=== PATIENT | female | born 1970 | race African-American/Black ===

== ENCOUNTER 2019-11-08 18:06 | Inpatient (IN) | payer OTHER ==
[2019-11-08 21:37] VITALS: BMI 33.5
--- NOTE | 2019-11-09 00:28 | HP ---
CIWA Score Nausea/Vomitin-No Nausea/No Vomiting Muscle Tremors: None Anxiety: 2 Agitation: 2 Paroxysmal Sweats: 3 Orientation: 0-Oriented Tacttile Disturbances: 2-Mild Itch/Numbness/Burn Auditory Disturbances: 0-None Visual Disturbances: 3-Moderate Sensitivity (lights) Headache: 0-None Present CIWA-Ar Total Score: 12 - Admission Criteria OASAS Guidelines: Admission for Medically Managed Detox: Requires at least one of the followin. CIWA greater than 12 2. Seizures within the past 24 hours 3. Delirium tremens within the past 24 hours 4. Hallucinations within the past 24 hours 5. Acute intervention needed for co occurring medical disorder 6. Acute intervention needed for co occurring psychiatric disorder 7. Severe withdrawal that cannot be handled at a lower level of care (continued vomiting, continued diarrhea, abnormal vital signs) requiring intravenous medication and/or fluids 8. Admitting History and Physical - Past Medical History ...LMP: 03/19/04 - Smoking History Smoking history: Current some day smoker Have you smoked in the past 12 months: Yes Aproximately how many cigarettes per day: 20 - Alcohol/Substance Use Hx Alcohol Use: Yes Admission ROS [facility] Chief Complaint: seeking alcohol detox Allergies/Adverse Reactions: Allergies Allergy/AdvReac Type Severity Reaction Status Date / Time Sulfa (Sulfonamide Allergy Severe Swelling Verified 11/08/19 21:19 Antibiotics) History of Present Illness: HERE FOR ALCOHOL DETOX. SELF REFERRED. LAST HERE 2014. PRESENTS TODAY WITH C/O WORSENING WITHDRAWAL SX'S. REPORTS DAILY ALCOHOL ABUSE. LAST USE 1 DAY AGO. LAST DETOX WAS AT [facility] IN Aug. SHE REPORTS RELAPSING 1 MONTH AFTER DC. 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 DENIES SZ, BLACKOUTS, AVH, DRUG OVERDOSE. UTOX + ARMANDO. DENIES IVDU. DENIES ANY SIGNIFICANT PERIOD OF CLEAN TIME EXCEPT RECENT 1 MONTH IN AUG. HOMLESS, UNEMPLOYED, DENIES LEGALS Exam Limitations: No Limitations - Ebola screening Have you traveled outside of the country in the last 21 days: No Have you had contact with anyone from an Ebola affected area: No Have you been sick,other than usual withdrawal symptoms: No Do you have a fever: No - Review of Systems Constitutional: Chills, Loss of Appetite, Malaise, Night Sweats, Changes in sleep EENT: reports: No Symptoms Reported Respiratory: reports: Shortness of Breath (PRN 2/2 ASTHAM), Productive cough ( YELLOWISH X 2 DAYS) Cardiac: reports: No Symptoms Reported GI: reports: No Symptoms Reported : reports: No Symptoms Reported Musculoskeletal: reports: Joint Pain, Neck Pain Integumentary: reports: No Symptoms Reported Neuro: reports: No Symptoms reported Endocrine: reports: No Symptoms Reported Hematology: reports: No Symptoms Reported Psychiatric: reports: Orientated x3, Anxious, Depressed (DENIES SI) Other Systems: Reviewed and Negative Patient History - Patient Medical History Hx Anemia: No Hx Asthma: Yes (Pt is on MDI) Hx Chronic Obstructive Pulmonary Disease (COPD): No Hx Cancer: No Hx Cardiac Disorders: No Hx Congestive Heart Failure: No Hx Hypertension: No Hx Hypercholesterolemia: No Hx Pacemaker: No HX Cerebrovascular Accident: No Hx Seizures: Yes (LAST 20 YEARS R/T DRUGS) Hx Dementia: No Hx Diabetes: No Hx Gastrointestinal Disorders: Yes (GERD) Hx Liver Disease: No Hx Genitourinary Disorders: No Hx Sexually Transmitted Disorders: No Hx Renal Disease (ESRD): No Hx Thyroid Disease: Yes (NOT ON SYNTHROID) Hx Human Immunodeficiency Virus (HIV): No Hx Hepatitis C: No Hx Depression: No Hx Suicide Attempt: No Hx Bipolar Disorder: Yes (on depakote taking meds) Hx Schizophrenia: No - Patient Surgical History Past Surgical History: Yes Hx Neurologic Surgery: No Hx Cataract Extraction: No Hx Cardiac Surgery: No Hx Lung Surgery: No Hx Breast Surgery: No Hx Breast Biopsy: No Hx Abdominal Surgery: Yes (PARTIAL HYSTERECTOMY 10 YRS AGO) Hx Appendectomy: No Hx Cholecystectomy: No Hx Genitourinary Surgery: No Hx Section: Yes (x 2) Hx Orthopedic Surgery: No Hx Hysterectomy: Yes (IN 2003) Other Surgical History: Lipoma removed from back of neck. Anesthesia Reaction: No - PPD History Previous Implant?: Yes Documented Results: Positive w/o proof PPD to be Administered?: No - Reproductive History Patient is a Female of Child Bearing Age (11 -55 yrs old): Yes Last Menstrual Period: 03/19/04 Patient : No (NE[facility] [place]) - Smoking Cessation Smoking history: Current every day smoker Have you smoked in the past 12 months: Yes Aproximately how many cigarettes per day: 3 Cigars Per Day: 0 Hx Chewing Tobacco Use: No Initiated information on smoking cessation: Yes 'Breaking Loose' booklet given: 11/09/19 - Substance & Tx. History Hx Alcohol Use: Yes Hx Substance Use: Yes Substance Use Type: Alcohol, Cocaine Hx Substance Use Treatment: Yes ([facility]) - Substances abused Crack Substance route: Smoking Frequency: Daily Amount used: 100 dollars Age of first use: 16 Date of last use: 11/07/19 Heroin Substance route: Inhalation Frequency: 1-2 times per week Amount used: 1 bag Age of first use: 13 Date of last use: 11/06/19 Alcohol Substance route: Oral Frequency: Daily Amount used: 4 40 ounces of beer/ 1 pint of vodka. Age of first use: 14 Date of last use: 11/07/19 Alprazolam (Xanax) Substance route: Oral Frequency: Daily Amount used: 2 sticks Age of first use: 13 Date of last use: 11/07/19 Admission Physical Exam [facility] - Vital Signs Vital Signs: Vital Signs - 24 hr 11/08/19 21:18 Temperature 98.7 F Pulse Rate 97 H Respiratory 20 Rate Blood Pressure 151/89 - Physical General Appearance: Yes: Mild Distress, Sweating, Anxious HEENTM: Yes: EOMI, Normocephalic, Normal Voice, TORI, Pharynx Normal Respiratory: Yes: Chest Non-Tender, Lungs Clear, Normal Breath Sounds, Decreased Breath Sounds, No Respiratory Distress Neck: Yes: No masses,lesions,Nodules, Supple, Trachea in good position Breast: Yes: Breasts Symetrical Cardiology: Yes: Regular Rhythm, Regular Rate, S1, S2 Abdominal: Yes: Normal Bowel Sounds, Non Tender, Soft, Protuberent Genitourinary: Yes: Within Normal Limits Back: Yes: Normal Inspection Musculoskeletal: Yes: full range of Motion, Gait Steady Extremities: Yes: Normal Capillary Refill, Normal Range of Motion, Non-Tender, Tremors Neurological: Yes: Fully Oriented, Alert, Motor Strength 5/5 Integumentary: Yes: Dry, Cold (COOL) Lymphatic: Yes: Within Normal Limits - Diagnostic (1) Alcohol dependence with withdrawal, uncomplicated Current Visit: Yes Status: Acute (2) Cocaine dependence with withdrawal Current Visit: Yes Status: Acute (3) Opioid abuse, episodic Current Visit: Yes Status: Suspected (4) Nicotine dependence Current Visit: Yes Status: Chronic Qualifiers: Nicotine product type: cigarettes Substance use status: uncomplicated Qualified Code(s): F17.210 - Nicotine dependence, cigarettes, uncomplicated (5) Homeless Current Visit: Yes Status: Suspected (6) History of positive PPD Current Visit: Yes Status: Chronic (7) Bronchial asthma Current Visit: Yes Status: Acute Qualifiers: Asthma severity: mild Asthma persistence: intermittent Asthma complication type: uncomplicated Qualified Code(s): J45.20 - Mild intermittent asthma, uncomplicated Cleared for Admission [facility] - Detox or Rehab S Level of Care: Medically Managed Detox Regimen/Protocol: Not Applicable (ATIVAN) Claeared for Rehab Admission: No Breathalyzer - Breathalyzer Breathalyzer: 0.009 Urine Drug Screen - Test Device Lot number: [id number] Expiration date: 09/03/21 - Control Is test valid?: Yes - Results Drug screen NEGATIVE: No Urine drug screen results: ARMANDO-Cocaine Inpatient Rehab Admission - Rehab Decision to Admit Inpatient rehab admission?: No
[2019-11-09] MEDS ORDERED: ALBUTEROL SO4 HFA INHALER IH PRN ×2 (00:36→00:50)
[2019-11-09] MEDS ORDERED: ONDANSETRON *ODT* 4 MG TABLET SL PRN (00:37)
[2019-11-09] MEDS ORDERED: IBUPROFEN 400 MG TABLET (FP) PO PRN (00:37)
[2019-11-09] MEDS ORDERED: guaiFENesin 200 MG/10 ML 10 ML UNIT-DOSE CUPS PO PRN (00:37)
[2019-11-09] MEDS ORDERED: ACETAMINOPHEN 325 MG TABLET (FP) PO PRN (00:37)
[2019-11-09] MEDS ORDERED: DICYCLOMINE HCL 10 MG CAPSULE PO PRN (00:37)
[2019-11-09] MEDS ORDERED: MENTHOL/PHENOL 1 EACH UD MM PRN (00:37)
[2019-11-09] MEDS ORDERED: LORazepam 1 MG TABLET PO PRN (00:37)
[2019-11-09] MEDS ORDERED: MAGNESIUM HYDROX 2400MG/30ML ORAL SUSPENSION 30 ML CUP PO PRN (00:37)
[2019-11-09] MEDS ORDERED: MAGNESIUM CITRATE 300 ML BOTTLE PO PRN (00:37)
[2019-11-09] MEDS ORDERED: BISMUTH SUBSALICYLATE 524 MG/30 ML UD PO PRN (00:37)
[2019-11-09] MEDS ORDERED: MAG HYDROX/AL HYDROX/SIMETH 30 ML UNIT-DOSE CUP PO PRN (00:37)
[2019-11-09] MEDS ORDERED: NICOTINE POLACRILEX 2 MG GUM BUC PRN (00:37)
[2019-11-09] MEDS ORDERED: P-EPHED 60MG/TRIPROLIDI 2.5MG TABLET PO PRN (00:37)
[2019-11-09] MEDS ORDERED: hydrOXYzine PAMOATE 25 MG CAPSULE (FP) PO PRN (00:37)
[2019-11-09] MEDS ORDERED: METHOCARBAMOL 500 MG TABLET PO PRN (00:37)
[2019-11-09] MEDS ORDERED: ALBUTEROL SO4 0.083% IH SOL 2.5 MG/3 ML VIAL.NEB. NEB PRN (00:42)
[2019-11-09] MEDS: LORazepam 2 MG TABLET PO SCH ×4 (06:04→22:27)
--- NOTE | 2019-11-09 10:29 | CONSULT ---
[facility] Psychiatric Consult - Data Date of interview: 11/09/19 Admission source: Self-referred Identifying data: Ms Marti is a 49 years old -[place] female with 12 children, unemployed on public assistance, homeless seeking detox treatment for alcohol, heroin, cocaine and xanax Substance Abuse History: Reports history of alcohol, heroin, crack cocaine and xanax use. Refer to addiction counselor's summary for further information Medical History: Significant for history of bronchial asthma, hypothyroidism, seizure disorder, obesity, history of partial hysterectomy and removal of lipoma from back & neck. Smokes 3 cigarettes daily Psychiatric History: Patient was approached several times at bedside. On every occasion, she told promotion writer:'' I'm tired and cannot talk to you right. Why don't you precribe my depakote, I don't need to see you for that" Psychiatric Findings - Problem List ([place] 1, 2,3) (1) Bipolar disorder Current Visit: No Status: Acute
[2019-11-09] MEDS: NICOTINE 14 MG/24 HOURS TOPICAL PATCH TD SCH (10:30)
[2019-11-09] MEDS: PRENATAL VITAMINS W/ FOLIC ACID TABLET (FP) PO SCH (10:30)
[2019-11-09 11:35] LABS: HEMATOCRIT 36.8 % (32.4-45.2); HEMOGLOBIN 12.6 GM/dL (10.7-15.3); MCHC 34.2 g/dl (32.0-36.0); MEAN CELL VOLUME 87.6 fl (80-96); MEAN PLT VOLUME 8.8 fl (7.5-11.1); PLATELET COUNT 308 K/MM3 (134-434); RDW 13.3 % (11.6-15.6); WHITE BLOOD COUNT 7.4 K/mm3 (4.0-10.0)
[2019-11-09 11:44] LABS: ALBUMIN 3.3 g/dl (3.4-5.0); BILIRUBIN,TOTAL 0.3 mg/dL (0.2-1); BLOOD UREA NITROGEN 6.8 mg/dL (7-18); CALCIUM 8.6 mg/dL (8.5-10.1); TOT PROT 6.7 g/dl (6.4-8.2)
[2019-11-09] MEDS ORDERED: FLUCONAZOLE 50 MG TABLET PO ONE (12:01)
[2019-11-09] MEDS ORDERED: AZITHROMYCIN 250 MG TABLET PO ONE (12:04)
--- NOTE | 2019-11-09 12:23 | PN ---
[facility] CIWA - CIWA Score Nausea/Vomitin-No Nausea/No Vomiting Muscle Tremors: 3 Anxiety: 3 Agitation: 4-Moderately Restless Paroxysmal Sweats: 3 Orientation: 0-Oriented Tacttile Disturbances: 0-None Auditory Disturbances: 0-None Visual Disturbances: 0-None Headache: 0-None Present CIWA-Ar Total Score: 13 BHS Progress Note (SOAP) Subjective: shakes sweats chest congestions sore throat body aches eye infection vaginal discharge/yeast/foul odor I have a h/o of high blood pressure but have not had any medication in a while Objective: 11/09/19 12:26 Vital Signs Temperature 97.3 F L 11/09/19 10:13 Pulse Rate 114 H 11/09/19 10:13 Respiratory Rate 17 11/09/19 10:13 Blood Pressure 136/82 11/09/19 10:13 O2 Sat by Pulse Oximetry (%) Laboratory Tests 11/08/19 11/09/19 11/09/19 21:53 09:15 09:15 WBC 7.4 RBC 4.20 Hgb 12.6 Hct 36.8 MCV 87.6 MCH 30.0 MCHC 34.2 RDW 13.3 Plt Count 308 MPV 8.8 Sodium 141 Potassium 4.0 Chloride 107 Carbon Dioxide 27 Anion Gap 7 L BUN 6.8 L Creatinine 1.0 Est GFR (CKD-EPI)AfAm 75.54 Est GFR (CKD-EPI)NonAf 65.18 Random Glucose 125 H Calcium 8.6 Total Bilirubin 0.3 AST 13 L ALT 18 Alkaline Phosphatase 95 Total Protein 6.7 Albumin 3.3 L POC Urine HCG, Qual Negative aaox3 ambulating no acute distress Assessment: 11/09/19 12:27 withdrawals spoke with pt pharmacy who states that last time pt had any HTN medication( metoprolol 25mg bid, norvasc 5mg qdaily, ASA 81mg qdaily) filled and p/u was July [address] Garcia [phone]. Plan: continue detox cortisproin eye drops ordered monistat VS diflucan 150mg x one symbicort zpak x 4 days will order HTN while in our facility. pt was made aware the importance of seeing her PCP Dr. Garcia and remaining as her pt for continuity of care. pt in agreement.
[2019-11-09] MEDS ORDERED: POLYMYXIN B SULFATE/TMP 10 ML OPHTHALMIC SOLUTION OU SCH (14:00)
[2019-11-09] MEDS: amLODIPine BESYLATE 5 MG TABLET (FP) PO SCH (14:54)
[2019-11-09] MEDS: ASPIRIN 81 MG CHEWABLE TABLETS PO SCH (14:55)
[2019-11-09] MEDS: BUDESONIDE/FORMETEROL FUMARATE 80/4.5 mcg INHALER IH SCH ×2 (14:56→22:31)
[2019-11-09] MEDS: NEOMYCIN/POLYMYX/HC OPHTHALMIC SUSPENSION 7.5 ML BOTTLE OU SCH ×3 (15:53→22:31)
[2019-11-09] MEDS: ALBUTEROL SO4 HFA INHALER IH PRN (22:26)
[2019-11-09] MEDS: METOPROLOL TARTRATE 25 MG TABLET (FP) PO SCH (22:27)
[2019-11-09] MEDS: THIAMINE HCL 100 MG TABLET (FP) PO SCH (22:28)
[2019-11-09] MEDS: MELATONIN 5 MG TABLETS PO PRN (22:29)
[2019-11-09] MEDS: MICONAZOLE NITRATE 2% VAGINAL CREAM 45 GM TUBE VG SCH (22:31)
[2019-11-10] MEDS: LORazepam 1 MG TABLET PO SCH ×4 (06:06→22:09)
[2019-11-10] MEDS: NEOMYCIN/POLYMYX/HC OPHTHALMIC SUSPENSION 7.5 ML BOTTLE OU SCH ×5 (06:08→22:11)
--- NOTE | 2019-11-10 09:09 | PN ---
[facility] CIWA - CIWA Score Nausea/Vomitin-No Nausea/No Vomiting Muscle Tremors: 3 Anxiety: 2 Agitation: 3 Paroxysmal Sweats: 3 Orientation: 0-Oriented Tacttile Disturbances: 0-None Auditory Disturbances: 0-None Visual Disturbances: 0-None Headache: 0-None Present CIWA-Ar Total Score: 11 S Progress Note (SOAP) Subjective: feeling better sweats irritable agitation Objective: 11/10/19 09:08 Vital Signs Temperature 96.8 F L 11/10/19 06:45 Pulse Rate 94 H 11/10/19 06:45 Respiratory Rate 18 11/10/19 06:45 Blood Pressure 125/97 11/10/19 06:45 O2 Sat by Pulse Oximetry (%) Laboratory Tests 11/08/19 11/09/19 11/09/19 21:53 09:15 09:15 WBC 7.4 RBC 4.20 Hgb 12.6 Hct 36.8 MCV 87.6 MCH 30.0 MCHC 34.2 RDW 13.3 Plt Count 308 MPV 8.8 Sodium 141 Potassium 4.0 Chloride 107 Carbon Dioxide 27 Anion Gap 7 L BUN 6.8 L Creatinine 1.0 Est GFR (CKD-EPI)AfAm 75.54 Est GFR (CKD-EPI)NonAf 65.18 Random Glucose 125 H Calcium 8.6 Total Bilirubin 0.3 AST 13 L ALT 18 Alkaline Phosphatase 95 Total Protein 6.7 Albumin 3.3 L POC Urine HCG, Qual Negative RPR Titer 11/09/19 09:15 WBC RBC Hgb Hct MCV MCH MCHC RDW Plt Count MPV Sodium Potassium Chloride Carbon Dioxide Anion Gap BUN Creatinine Est GFR (CKD-EPI)AfAm Est GFR (CKD-EPI)NonAf Random Glucose Calcium Total Bilirubin AST ALT Alkaline Phosphatase Total Protein Albumin POC Urine HCG, Qual RPR Titer Nonreactive aaox3 ambulating no acute distress Assessment: 11/10/19 09:09 withdrawals Plan: continue detox increase fluids
[2019-11-10] MEDS: amLODIPine BESYLATE 5 MG TABLET (FP) PO SCH (10:10)
[2019-11-10] MEDS: AZITHROMYCIN 250 MG TABLET PO SCH (10:10)
[2019-11-10] MEDS: PANTOPRAZOLE 40 MG TABLET PO SCH (10:10)
[2019-11-10] MEDS: METOPROLOL TARTRATE 25 MG TABLET (FP) PO SCH ×2 (10:10→22:09)
[2019-11-10] MEDS: ASPIRIN 81 MG CHEWABLE TABLETS PO SCH (10:10)
[2019-11-10] MEDS: NICOTINE 14 MG/24 HOURS TOPICAL PATCH TD SCH (10:11)
[2019-11-10] MEDS: ACETAMINOPHEN 325 MG TABLET (FP) PO PRN ×2 (10:12→21:06)
[2019-11-10] MEDS: TOLNAFTATE 1% CREAM 15 GM TUBE TP SCH ×2 (10:15→22:11)
[2019-11-10] MEDS: BUDESONIDE/FORMETEROL FUMARATE 80/4.5 mcg INHALER IH SCH ×2 (10:16→22:11)
[2019-11-10] MEDS: PRENATAL VITAMINS W/ FOLIC ACID TABLET (FP) PO SCH (10:18)
[2019-11-10] MEDS: ALBUTEROL SO4 HFA INHALER IH PRN (19:10)
[2019-11-10] MEDS: THIAMINE HCL 100 MG TABLET (FP) PO SCH (22:09)
[2019-11-10] MEDS: MELATONIN 5 MG TABLETS PO PRN (22:10)
[2019-11-10] MEDS: MICONAZOLE NITRATE 2% VAGINAL CREAM 45 GM TUBE VG SCH (22:11)
[2019-11-11] MEDS ORDERED: LORazepam 0.5 MG TABLET PO PRN
[2019-11-11] MEDS: LORazepam 0.5 MG TABLET PO SCH ×4 (06:25→22:26)
[2019-11-11] MEDS: NEOMYCIN/POLYMYX/HC OPHTHALMIC SUSPENSION 7.5 ML BOTTLE OU SCH ×5 (06:26→22:29)
[2019-11-11] MEDS: BUDESONIDE/FORMETEROL FUMARATE 80/4.5 mcg INHALER IH SCH ×2 (10:57→22:28)
[2019-11-11] MEDS: amLODIPine BESYLATE 5 MG TABLET (FP) PO SCH (10:58)
[2019-11-11] MEDS: METOPROLOL TARTRATE 25 MG TABLET (FP) PO SCH ×2 (10:58→22:26)
[2019-11-11] MEDS: AZITHROMYCIN 250 MG TABLET PO SCH (10:58)
[2019-11-11] MEDS: ASPIRIN 81 MG CHEWABLE TABLETS PO SCH (10:59)
[2019-11-11] MEDS: PANTOPRAZOLE 40 MG TABLET PO SCH (10:59)
[2019-11-11] MEDS: NICOTINE 14 MG/24 HOURS TOPICAL PATCH TD SCH (10:59)
[2019-11-11] MEDS: PRENATAL VITAMINS W/ FOLIC ACID TABLET (FP) PO SCH (10:59)
[2019-11-11] MEDS: TOLNAFTATE 1% CREAM 15 GM TUBE TP SCH ×2 (11:00→22:28)
--- NOTE | 2019-11-11 13:28 | PN ---
S CIWA - CIWA Score Nausea/Vomitin-No Nausea/No Vomiting Muscle Tremors: 2 Anxiety: 1-Mildly Anxious Agitation: 1-Slight > Activity Paroxysmal Sweats: 1-Minimal Palms Moist Orientation: 0-Oriented Tacttile Disturbances: 0-None Auditory Disturbances: 0-None Visual Disturbances: 0-None Headache: 0-None Present CIWA-Ar Total Score: 5 BHS Progress Note (SOAP) Subjective: feeling much better little chills Objective: 11/11/19 13:27 Vital Signs Temperature 98.2 F 11/11/19 08:50 Pulse Rate 93 H 11/11/19 08:50 Respiratory Rate 19 11/11/19 08:50 Blood Pressure 142/80 11/11/19 08:50 O2 Sat by Pulse Oximetry (%) aaox3 ambulating no acute distress Assessment: 11/11/19 13:28 withdrawals Plan: continue detox d/c in am
[2019-11-11 14:44] LABS: PH,URINE 6.5 (5.0-8.0); URINE APPEARANCE CLEAR; URINE BILIRUBIN NEGATIVE (NEGATIVE); URINE COLOR YELLOW; URINE GLUCOSE (UA) NEGATIVE (NEGATIVE); URINE KETONE NEGATIVE (NEGATIVE); URINE LEUK ESTERASE NEGATIVE (NEGATIVE); URINE NITRITE NEGATIVE (NEGATIVE); URINE PROTEIN NEGATIVE (NEGATIVE); URINE UROBILINOGEN 0.2 mg/dL (0.2-1.0)
[2019-11-11] MEDS: THIAMINE HCL 100 MG TABLET (FP) PO SCH (22:26)
[2019-11-11] MEDS: MELATONIN 5 MG TABLETS PO PRN (22:27)
[2019-11-11] MEDS: MICONAZOLE NITRATE 2% VAGINAL CREAM 45 GM TUBE VG SCH (22:29)
[2019-11-12] MEDS ORDERED: LORazepam 0.5 MG TABLET PO ONE (05:00)
[2019-11-12] MEDS: NEOMYCIN/POLYMYX/HC OPHTHALMIC SUSPENSION 7.5 ML BOTTLE OU SCH ×2 (06:36→10:04)
[2019-11-12] MEDS: METOPROLOL TARTRATE 25 MG TABLET (FP) PO SCH (10:03)
[2019-11-12] MEDS: ASPIRIN 81 MG CHEWABLE TABLETS PO SCH (10:03)
[2019-11-12] MEDS: BUDESONIDE/FORMETEROL FUMARATE 80/4.5 mcg INHALER IH SCH (10:04)
[2019-11-12] MEDS: NICOTINE 14 MG/24 HOURS TOPICAL PATCH TD SCH (10:04)
[2019-11-12] MEDS: amLODIPine BESYLATE 5 MG TABLET (FP) PO SCH (10:04)
[2019-11-12] MEDS: PRENATAL VITAMINS W/ FOLIC ACID TABLET (FP) PO SCH (10:04)
[2019-11-12] MEDS: AZITHROMYCIN 250 MG TABLET PO SCH (10:04)
[2019-11-12] MEDS: PANTOPRAZOLE 40 MG TABLET PO SCH (10:04)
[2019-11-12] MEDS: TOLNAFTATE 1% CREAM 15 GM TUBE TP SCH (10:05)
[2019-11-12 11:25] VITALS: BP 126/80; PULSE 88; TEMP 97.3
--- NOTE | 2019-11-12 13:55 | DS ---
[facility] Detox Discharge Summary Admission Date: 11/09/19 Discharge Date: 11/12/19 - History Present History: Alcohol Dependence Pertinent Past History: Asthma, seizures - Physical Exam Results Vital Signs: Vital Signs Temperature 97.3 F L 11/12/19 09:24 Pulse Rate 88 11/12/19 09:24 Respiratory Rate 18 11/12/19 09:24 Blood Pressure 126/80 11/12/19 09:24 O2 Sat by Pulse Oximetry (%) Pertinent Admission Physical Exam Findings: Withdrawal sx Laboratory Last Values WBC 7.4 K/mm3 (4.0-10.0) 11/09/19 09:15 RBC 4.20 M/mm3 (3.60-5.2) 11/09/19 09:15 Hgb 12.6 GM/dL (10.7-15.3) 11/09/19 09:15 Hct 36.8 % (32.4-45.2) 11/09/19 09:15 MCV 87.6 fl (80-96) 11/09/19 09:15 MCH 30.0 pg (25.7-33.7) 11/09/19 09:15 MCHC 34.2 g/dl (32.0-36.0) 11/09/19 09:15 RDW 13.3 % (11.6-15.6) 11/09/19 09:15 Plt Count 308 K/MM3 (134-434) 11/09/19 09:15 MPV 8.8 fl (7.5-11.1) 11/09/19 09:15 Sodium 141 mmol/L (136-145) 11/09/19 09:15 Potassium 4.0 mmol/L (3.5-5.1) 11/09/19 09:15 Chloride 107 mmol/L (98-107) 11/09/19 09:15 Carbon Dioxide 27 mmol/L (21-32) 11/09/19 09:15 Anion Gap 7 MMOL/L (8-16) L 11/09/19 09:15 BUN 6.8 mg/dL (7-18) L 11/09/19 09:15 Creatinine 1.0 mg/dL (0.55-1.3) 11/09/19 09:15 Est GFR (CKD-EPI)AfAm 75.54 11/09/19 09:15 Est GFR (CKD-EPI)NonAf 65.18 11/09/19 09:15 Random Glucose 125 mg/dL (74-106) H 11/09/19 09:15 Calcium 8.6 mg/dL (8.5-10.1) 11/09/19 09:15 Total Bilirubin 0.3 mg/dL (0.2-1) 11/09/19 09:15 AST 13 U/L (15-37) L 11/09/19 09:15 ALT 18 U/L (13-61) 11/09/19 09:15 Alkaline Phosphatase 95 U/L (45-117) 11/09/19 09:15 Total Protein 6.7 g/dl (6.4-8.2) 11/09/19 09:15 Albumin 3.3 g/dl (3.4-5.0) L 11/09/19 09:15 Urine Color Yellow 11/11/19 11:40 Urine Appearance Clear 11/11/19 11:40 Urine pH 6.5 (5.0-8.0) 11/11/19 11:40 Ur Specific [place] 1.004 (1.010-1.035) L 11/11/19 11:40 Urine Protein Negative (NEGATIVE) 11/11/19 11:40 Urine Glucose (UA) Negative (NEGATIVE) 11/11/19 11:40 Urine Ketones Negative (NEGATIVE) 11/11/19 11:40 Urine Blood Negative (NEGATIVE) 11/11/19 11:40 Urine Nitrite Negative (NEGATIVE) 11/11/19 11:40 Urine Bilirubin Negative (NEGATIVE) 11/11/19 11:40 Urine Urobilinogen 0.2 mg/dL (0.2-1.0) 11/11/19 11:40 Ur Leukocyte Esterase Negative (NEGATIVE) 11/11/19 11:40 POC Urine HCG, Qual Negative 11/08/19 21:53 RPR Titer Nonreactive (NONREACTIVE) 11/09/19 09:15 Labs noted - Treatment Hospital Course: Detox Protocol Followed, Detoxed Safely, Responded well, Discharged Condition Good, Rehab Referral Accepted Patient has Accepted a Rehab Referral to: [facility] - Medication Discharge Medications: Ambulatory Orders Albuterol Sulfate Inhaler - [Ventolin HFA Inhaler -] 1 - 2 inh PO Q4H PRN #1 inh 12/11/14 Pantoprazole Sodium [Protonix -] 40 mg PO DAILY #30 tablet.ec 12/11/14 Amlodipine Besylate [Norvasc -] 5 mg PO DAILY 11/12/19 Aspirin [ASA -] 81 mg PO DAILY 11/12/19 Azithromycin [Zithromax -] 250 mg PO DAILY 11/12/19 Budesonide/Formeterol Fumarate [SYMBICORT 80/4.5mcg -] 2 inh PO BID 11/12/19 Metoprolol Tartrate [Lopressor -] 25 mg PO BID 11/12/19 Miconazole Nitrate [Monistat 7] 45 gm VG HS 11/12/19 Neomycin/Polymyx/Hc Ophth Susp [Cortisporin Ophthalmic Suspension -] 1 drop OD Q4H 11/12/19 Pantoprazole Sodium [Protonix] 40 mg PO DAILY 11/12/19 Tolnaftate 1% Cream [Tinactin 1% Cream -] 1 applic TP BID 11/12/19 - Diagnosis (1) Hypertension Status: Chronic Qualifiers: Hypertension type: essential hypertension Qualified Code(s): I10 - Essential (primary) hypertension (2) GERD (gastroesophageal reflux disease) Status: Chronic Qualifiers: Esophagitis presence: without esophagitis Qualified Code(s): K21.9 - Gastro -esophageal reflux disease without esophagitis (3) Alcohol dependence with withdrawal, uncomplicated Status: Acute (4) Bronchial asthma Status: Chronic Qualifiers: Asthma severity: mild Asthma persistence: intermittent Asthma complication type: uncomplicated Qualified Code(s): J45.20 - Mild intermittent asthma, uncomplicated (5) Cocaine dependence with withdrawal Status: Acute (6) Nicotine dependence Status: Acute Qualifiers: Nicotine product type: cigarettes Substance use status: uncomplicated Qualified Code(s): F17.210 - Nicotine dependence, cigarettes, uncomplicated - AMA Did Patient Leave Against Medical Advice: No
--- NOTE | 2019-11-12 14:37 | EKG ---
Test Reason : Blood Pressure : / mmHG Vent. Rate : 081 BPM Atrial Rate : 081 BPM P-R Int : 148 ms QRS Dur : 080 ms QT Int : 400 ms P-R-T Axes : 067 022 037 degrees QTc Int : 464 ms NORMAL SINUS RHYTHM POSSIBLE LEFT ATRIAL ENLARGEMENT BORDERLINE ECG Confirmed by MD SEBASTIAN, CARL ([id number]) on 11/12/2019 2:37:10 PM Referred By: Confirmed By:CARL CORTES MD
== END 2019-11-12 12:42 | disposition other institution (70) | DRG 773 ==
LOC: YASAS 18:06 → Y6N 11-09 00:57
PROVIDERS: ADMIT Allergy & Immunology; ATTEND Allergy & Immunology
PROC: HZ2ZZZZ Detoxification Services for Substance Abuse Treatment (ICD-10-PCS; principal; 2019-11-09)
DX: F10.230 Alcohol dependence with withdrawal, uncomplicated (principal); F14.20 Cocaine dependence, uncomplicated; F11.10 Opioid abuse, uncomplicated; F17.210 Nicotine dependence, cigarettes, uncomplicated; F31.9 Bipolar disorder, unspecified; I10 Essential (primary) hypertension; K21.9 Gastro-esophageal reflux disease without esophagitis; J45.20 Mild intermittent asthma, uncomplicated; E03.9 Hypothyroidism, unspecified; E66.9 Obesity, unspecified; Z68.33 Body mass index [BMI] 33.0-33.9, adult; Z86.69 Personal history of other diseases of the nervous system and sense organs; Z88.2 Allergy status to sulfonamides; Z90.710 Acquired absence of both cervix and uterus; Z56.0 Unemployment, unspecified; Z59.0 Homelessness
CPT/HCPCS: 36415; 71046-TC-FY; 80053; 81003; 81025; 85027; 86593; 93005; 93010; 94640

== ENCOUNTER 2019-11-12 12:32 | Inpatient (IN) | payer OTHER ==
[2019-11-12] MEDS ORDERED: P-EPHED 60MG/TRIPROLIDI 2.5MG TABLET PO PRN (13:55)
[2019-11-12] MEDS ORDERED: ALBUTEROL SO4 HFA INHALER IH PRN (13:55)
[2019-11-12] MEDS ORDERED: LOPERAMIDE HCL 2 MG CAPSULE PO PRN (13:55)
[2019-11-12] MEDS ORDERED: guaiFENesin 200 MG/10 ML 10 ML UNIT-DOSE CUPS PO PRN (13:55)
[2019-11-12] MEDS ORDERED: MAG HYDROX/AL HYDROX/SIMETH 30 ML UNIT-DOSE CUP PO PRN (13:55)
[2019-11-12] MEDS ORDERED: hydrOXYzine PAMOATE 25 MG CAPSULE (FP) PO PRN (13:55)
[2019-11-12] MEDS ORDERED: MAGNESIUM HYDROX 2400MG/30ML ORAL SUSPENSION 30 ML CUP PO PRN (13:55)
[2019-11-12] MEDS ORDERED: MENTHOL/PHENOL 1 EACH UD MM PRN (13:55)
[2019-11-12] MEDS ORDERED: IBUPROFEN 400 MG TABLET (FP) PO PRN (13:55)
[2019-11-12] MEDS ORDERED: MAGNESIUM CITRATE 300 ML BOTTLE PO PRN (13:55)
--- NOTE | 2019-11-12 14:00 | HP ---
[facility] Rehab Assess/Revision - Admission History Admitted to Rehab from: [address] Date of Admission to Rehab: 11/12/2019 - Findings Detox History & Physical reviewed: Yes Concur with findings: Yes Inpatient Rehab Admission - Rehab Decision to Admit Inpatient rehab admission?: Yes - Initial Determination Are CD services needed?: Yes Free of communicable disease: Yes Not in need of hospitalization: Yes - Rehab Admission Criteria Previous failed treatment: Yes Poor recovery environment: Yes Comorbidities: Yes Lacks judgement: Yes Patient is meeting Inpatient Rehab admission criteria:: Yes
[2019-11-12] MEDS: NEOMYCIN/POLYMYX/HC OPHTHALMIC SUSPENSION 7.5 ML BOTTLE OD SCH ×3 (15:00→21:19)
[2019-11-12] MEDS ORDERED: PT OWN MED DRAWER 7, Y5N ONE (20:23)
[2019-11-12] MEDS: FLUOCINONIDE 0.05% CREAM (15 GM TUBE) TP SCH (21:19)
[2019-11-12] MEDS: BUDESONIDE/FORMETEROL FUMARATE 80/4.5 mcg INHALER IH SCH (21:19)
[2019-11-12] MEDS: THIAMINE HCL 100 MG TABLET (FP) PO SCH (21:20)
[2019-11-12] MEDS: METOPROLOL TARTRATE 25 MG TABLET (FP) PO SCH (21:20)
[2019-11-12] MEDS: MICONAZOLE NITRATE 2% VAGINAL CREAM 45 GM TUBE VG SCH (21:21)
[2019-11-12] MEDS: TOLNAFTATE 1% CREAM 15 GM TUBE TP SCH (21:26)
[2019-11-12] MEDS ORDERED: MELATONIN 5 MG TABLETS PO PRN (22:00)
[2019-11-13] MEDS: NEOMYCIN/POLYMYX/HC OPHTHALMIC SUSPENSION 7.5 ML BOTTLE OD SCH ×6 (01:48→21:07)
[2019-11-13] MEDS ORDERED: PT OWN MED DRAWER 7, Y5N ONE ×2 (08:36→13:35)
[2019-11-13] MEDS: AZITHROMYCIN 250 MG TABLET PO SCH (09:33)
[2019-11-13] MEDS: amLODIPine BESYLATE 5 MG TABLET (FP) PO SCH (09:33)
[2019-11-13] MEDS: BUDESONIDE/FORMETEROL FUMARATE 80/4.5 mcg INHALER IH SCH ×2 (09:33→21:07)
[2019-11-13] MEDS: ASPIRIN 81 MG CHEWABLE TABLETS PO SCH (09:33)
[2019-11-13] MEDS: METOPROLOL TARTRATE 25 MG TABLET (FP) PO SCH ×2 (09:33→21:08)
[2019-11-13] MEDS: PRENATAL VITAMINS W/ FOLIC ACID TABLET (FP) PO SCH (09:34)
[2019-11-13] MEDS: PANTOPRAZOLE 40 MG TABLET PO SCH (09:34)
[2019-11-13] MEDS: FLUOCINONIDE 0.05% CREAM (15 GM TUBE) TP SCH ×2 (09:37→21:08)
[2019-11-13] MEDS: TOLNAFTATE 1% CREAM 15 GM TUBE TP SCH ×2 (10:21→21:10)
[2019-11-13] MEDS ORDERED: ALBUTEROL SO4 2.5/IPRATROPIUM 0.5 INH SOL 3 ML VIAL.NEB. NEB PRN (16:04)
[2019-11-13] MEDS ORDERED: ALBUTEROL SO4 2.5/IPRATROPIUM 0.5 INH SOL 3 ML VIAL.NEB. NEB ONE (16:05)
[2019-11-13] MEDS: THIAMINE HCL 100 MG TABLET (FP) PO SCH (21:09)
[2019-11-13] MEDS: MICONAZOLE NITRATE 2% VAGINAL CREAM 45 GM TUBE VG SCH (21:11)
[2019-11-13] MEDS ORDERED: diphenhydrAMINE HCL 25 MG CAPSULE (FP) PO ONE (23:53)
[2019-11-14] MEDS: NEOMYCIN/POLYMYX/HC OPHTHALMIC SUSPENSION 7.5 ML BOTTLE OD SCH ×6 (02:37→21:22)
--- NOTE | 2019-11-14 08:57 | PN ---
[facility] Progress Note Note: Pt is a 49 y/o female with a hx of ISAIAH-Heroin(sporadic use),alcohol,crack,xanax admitted to rehab from [address] on 11/12/19. PMHx:Asthma,GERD,Thyroid Dz(no meds),Seizure r/t drug use(20 yrs ago), Arthritis of left knee/chronic knee pain. PSHx:Partial Hysterectomy,Lipoma removal,neck. Psych hx:Bipolar d/o. Pt reports she has a primary care provider, Dr. Brayan Alvarado now on [address] in the [place], [place] but previously @ [facility] on [address] [place] Vital Signs - 24 hr 11/13/19 11/13/19 11/13/19 10:16 16:38 22:14 Temperature Pulse Rate 83 77 83 Respiratory 18 Rate Blood Pressure 138/87 115/73 O2 Sat by Pulse 100 Oximetry (%) 11/14/19 08:01 Temperature 97.9 F Pulse Rate 81 Respiratory 18 Rate Blood Pressure 124/80 O2 Sat by Pulse Oximetry (%) Alert o x 3 nad oob ambulating with steady gait extremities/skin:no pedal edema, Active ROM, joints, ++fatty knees; skin intact. A/P ISAIAH s/p detox Obesity Chronic knee pain, Left Maintain safety increase po fluids as tolerated Add Robaxin 500 mg po TID prn
[2019-11-14] MEDS: BUDESONIDE/FORMETEROL FUMARATE 80/4.5 mcg INHALER IH SCH ×2 (09:51→21:22)
[2019-11-14] MEDS: FLUOCINONIDE 0.05% CREAM (15 GM TUBE) TP SCH ×2 (09:51→21:24)
[2019-11-14] MEDS: amLODIPine BESYLATE 5 MG TABLET (FP) PO SCH (09:52)
[2019-11-14] MEDS: AZITHROMYCIN 250 MG TABLET PO SCH (09:52)
[2019-11-14] MEDS: PANTOPRAZOLE 40 MG TABLET PO SCH (09:52)
[2019-11-14] MEDS: PRENATAL VITAMINS W/ FOLIC ACID TABLET (FP) PO SCH (09:53)
[2019-11-14] MEDS: ASPIRIN 81 MG CHEWABLE TABLETS PO SCH (09:53)
[2019-11-14] MEDS: TOLNAFTATE 1% CREAM 15 GM TUBE TP SCH ×2 (09:54→21:23)
[2019-11-14] MEDS: METHOCARBAMOL 500 MG TABLET PO PRN ×2 (10:42→21:26)
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
[2019-11-14] MEDS: METOPROLOL TARTRATE 25 MG TABLET (FP) PO SCH ×2 (11:55→21:25)
[2019-11-14] MEDS ORDERED: PT OWN MED DRAWER 7, Y5N ONE ×4 (14:26→21:26)
[2019-11-14] MEDS: THIAMINE HCL 100 MG TABLET (FP) PO SCH (21:22)
[2019-11-14] MEDS: traZODone HCL 50 MG TABLET (FP) PO SCH (21:22)
[2019-11-14] MEDS: MICONAZOLE NITRATE 2% VAGINAL CREAM 45 GM TUBE VG SCH (22:13)
[2019-11-15] MEDS: NEOMYCIN/POLYMYX/HC OPHTHALMIC SUSPENSION 7.5 ML BOTTLE OD SCH ×6 (02:00→21:18)
[2019-11-15] MEDS ORDERED: PT OWN MED DRAWER 7, Y5N ONE ×3 (05:50→22:09)
[2019-11-15] MEDS: BUDESONIDE/FORMETEROL FUMARATE 80/4.5 mcg INHALER IH SCH ×2 (09:48→21:18)
[2019-11-15] MEDS: METOPROLOL TARTRATE 25 MG TABLET (FP) PO SCH ×2 (09:49→21:17)
[2019-11-15] MEDS: PRENATAL VITAMINS W/ FOLIC ACID TABLET (FP) PO SCH (09:49)
[2019-11-15] MEDS: FLUOCINONIDE 0.05% CREAM (15 GM TUBE) TP SCH ×2 (09:49→21:17)
[2019-11-15] MEDS: ASPIRIN 81 MG CHEWABLE TABLETS PO SCH (09:49)
[2019-11-15] MEDS: amLODIPine BESYLATE 5 MG TABLET (FP) PO SCH (09:49)
[2019-11-15] MEDS: PANTOPRAZOLE 40 MG TABLET PO SCH (09:50)
[2019-11-15] MEDS: TOLNAFTATE 1% CREAM 15 GM TUBE TP SCH ×2 (09:51→21:18)
[2019-11-15] MEDS: METHOCARBAMOL 500 MG TABLET PO PRN ×2 (09:52→21:19)
[2019-11-15] MEDS: traZODone HCL 50 MG TABLET (FP) PO SCH (21:17)
[2019-11-15] MEDS: THIAMINE HCL 100 MG TABLET (FP) PO SCH (21:17)
[2019-11-15] MEDS: MICONAZOLE NITRATE 2% VAGINAL CREAM 45 GM TUBE VG SCH (21:18)
[2019-11-15] MEDS: ACETAMINOPHEN 325 MG TABLET (FP) PO PRN (21:19)
[2019-11-16] MEDS: NEOMYCIN/POLYMYX/HC OPHTHALMIC SUSPENSION 7.5 ML BOTTLE OD SCH ×6 (02:41→21:13)
[2019-11-16] MEDS ORDERED: PT OWN MED DRAWER 7, Y5N ONE ×4 (08:47→21:17)
[2019-11-16] MEDS: ASPIRIN 81 MG CHEWABLE TABLETS PO SCH (09:52)
[2019-11-16] MEDS: FLUOCINONIDE 0.05% CREAM (15 GM TUBE) TP SCH ×2 (09:53→21:15)
[2019-11-16] MEDS: METOPROLOL TARTRATE 25 MG TABLET (FP) PO SCH ×2 (09:54→21:16)
[2019-11-16] MEDS: PANTOPRAZOLE 40 MG TABLET PO SCH (09:54)
[2019-11-16] MEDS: BUDESONIDE/FORMETEROL FUMARATE 80/4.5 mcg INHALER IH SCH ×2 (09:54→21:13)
[2019-11-16] MEDS: PRENATAL VITAMINS W/ FOLIC ACID TABLET (FP) PO SCH (09:54)
[2019-11-16] MEDS: amLODIPine BESYLATE 5 MG TABLET (FP) PO SCH (09:54)
[2019-11-16] MEDS: TOLNAFTATE 1% CREAM 15 GM TUBE TP SCH ×2 (09:55→21:16)
[2019-11-16] MEDS: METHOCARBAMOL 500 MG TABLET PO PRN (09:56)
[2019-11-16] MEDS: ACETAMINOPHEN 325 MG TABLET (FP) PO PRN (09:57)
--- NOTE | 2019-11-16 10:42 | PREP.REFER ---
HIV PrEP/PEP - PrEP HIV Risk Assessment When was your last HIV test?: 11/13/2019-negative Are you concerned about any sexual encounters past 6 months?: No Have you had a STI in the last 6 months?: No Have you shared needles or other equipment?: No Are you interested in daily medication to help prevent HIV?: No Recommendation: None at this time Comment: patient is not sexually active.
--- NOTE | 2019-11-16 10:49 | PN ---
[facility] Progress Note (SOAP) Subjective: Patient c/o pain in the knees relate to osteoarthritis. 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 PMHx of same with documentation (X-ray). States that she is on meloxicam for the pain, however, she does not have the medication in her possessions and reports her most recent prescription was 6 months ago. Also reports gabapentin use for the pain. Objective: P/E General: no apparent distress HEENTM: PERRLA Neck: supple MSK: full weight bear, walks with a limp, limited ROM lower extremities r/t pain Neuro_ CN 2-12 intact Extremities: +pulses, some swelling of knees. 11/16/19 10:43 Vital Signs Period Temp Pulse Resp BP Sys/Hebert Pulse Ox Last 24 Hr 98.5 F 72-83 18-18 112-116/73-76 11/16/19 10:45 11/16/19 10:47 Assessment: Bilateral knee pain 11/16/19 10:49 Plan: Increased motrin to 600 BID, added lidoderm patch. Advised that gabapentin would not be effective for osteoarthritis and meloxicam was not in our formulary. Advised follow up with PCP upon discharge.
[2019-11-16] MEDS: METHOCARBAMOL 500 MG TABLET PO SCH ×2 (12:10→18:17)
[2019-11-16] MEDS: LIDOCAINE 5% TOPICAL PATCH TP SCH (13:09)
[2019-11-16] MEDS: IBUPROFEN 600 MG TABLET (FP) PO PRN (21:13)
[2019-11-16] MEDS: THIAMINE HCL 100 MG TABLET (FP) PO SCH (21:13)
[2019-11-16] MEDS: traZODone HCL 50 MG TABLET (FP) PO SCH (21:13)
[2019-11-16] MEDS: LIDOCAINE PATCH REMOVAL MC SCH (21:15)
[2019-11-16] MEDS: MICONAZOLE NITRATE 2% VAGINAL CREAM 45 GM TUBE VG SCH (21:17)
[2019-11-17] MEDS: METHOCARBAMOL 500 MG TABLET PO SCH ×3 (06:42→21:06)
[2019-11-17] MEDS ORDERED: PT OWN MED DRAWER 7, Y5N ONE ×3 (08:37→20:32)
[2019-11-17] MEDS: FOLIC ACID 1 MG TABLET (FP) PO SCH (09:51)
[2019-11-17] MEDS: ASPIRIN 81 MG CHEWABLE TABLETS PO SCH (09:51)
[2019-11-17] MEDS: PRENATAL VITAMINS W/ FOLIC ACID TABLET (FP) PO SCH (09:51)
[2019-11-17] MEDS: BUDESONIDE/FORMETEROL FUMARATE 80/4.5 mcg INHALER IH SCH ×2 (09:52→21:55)
[2019-11-17] MEDS: amLODIPine BESYLATE 5 MG TABLET (FP) PO SCH (09:52)
[2019-11-17] MEDS: PANTOPRAZOLE 40 MG TABLET PO SCH (09:52)
[2019-11-17] MEDS: LIDOCAINE 5% TOPICAL PATCH TP SCH (09:52)
[2019-11-17] MEDS: AMMONIUM LACTATE 12% LOTION 225 GM BOTTLE TP PRN (09:53)
[2019-11-17] MEDS: METOPROLOL TARTRATE 25 MG TABLET (FP) PO SCH ×2 (09:53→21:04)
[2019-11-17] MEDS: FLUOCINONIDE 0.05% CREAM (15 GM TUBE) TP SCH ×2 (09:53→21:05)
[2019-11-17] MEDS: TOLNAFTATE 1% CREAM 15 GM TUBE TP SCH ×2 (09:55→23:08)
[2019-11-17] MEDS: IBUPROFEN 600 MG TABLET (FP) PO PRN ×2 (09:55→21:08)
[2019-11-17] MEDS: THIAMINE HCL 100 MG TABLET (FP) PO SCH (21:05)
[2019-11-17] MEDS: traZODone HCL 50 MG TABLET (FP) PO SCH (21:05)
[2019-11-17] MEDS: LIDOCAINE PATCH REMOVAL MC SCH (21:06)
[2019-11-17] MEDS: MICONAZOLE NITRATE 2% VAGINAL CREAM 45 GM TUBE VG SCH (21:55)
[2019-11-18] MEDS: METHOCARBAMOL 500 MG TABLET PO SCH ×3 (06:16→22:04)
[2019-11-18] MEDS ORDERED: PT OWN MED DRAWER 7, Y5N ONE ×2 (06:19→19:57)
[2019-11-18] MEDS: AMMONIUM LACTATE 12% LOTION 225 GM BOTTLE TP PRN (06:20)
[2019-11-18] MEDS ORDERED: ALBUTEROL SO4 2.5/IPRATROPIUM 0.5 INH SOL 3 ML VIAL.NEB. NEB PRN (09:00)
[2019-11-18] MEDS: LIDOCAINE 5% TOPICAL PATCH TP SCH (09:51)
[2019-11-18] MEDS: TOLNAFTATE 1% CREAM 15 GM TUBE TP SCH ×2 (09:52→22:06)
[2019-11-18] MEDS: BUDESONIDE/FORMETEROL FUMARATE 80/4.5 mcg INHALER IH SCH ×2 (09:52→22:38)
[2019-11-18] MEDS: PANTOPRAZOLE 40 MG TABLET PO SCH (09:52)
[2019-11-18] MEDS: ASPIRIN 81 MG CHEWABLE TABLETS PO SCH (09:52)
[2019-11-18] MEDS: PRENATAL VITAMINS W/ FOLIC ACID TABLET (FP) PO SCH (09:52)
[2019-11-18] MEDS: FOLIC ACID 1 MG TABLET (FP) PO SCH (09:52)
[2019-11-18] MEDS: IBUPROFEN 600 MG TABLET (FP) PO PRN ×2 (09:53→22:05)
[2019-11-18] MEDS: FLUOCINONIDE 0.05% CREAM (15 GM TUBE) TP SCH ×2 (10:20→22:03)
[2019-11-18] MEDS: amLODIPine BESYLATE 5 MG TABLET (FP) PO SCH (10:20)
[2019-11-18] MEDS: METOPROLOL TARTRATE 25 MG TABLET (FP) PO SCH ×2 (10:20→22:04)
[2019-11-18] MEDS: LIDOCAINE PATCH REMOVAL MC SCH (22:03)
[2019-11-18] MEDS: traZODone HCL 50 MG TABLET (FP) PO SCH (22:03)
[2019-11-18] MEDS: MICONAZOLE NITRATE 2% VAGINAL CREAM 45 GM TUBE VG SCH (22:04)
[2019-11-18] MEDS: THIAMINE HCL 100 MG TABLET (FP) PO SCH (22:05)
[2019-11-19] MEDS: METHOCARBAMOL 500 MG TABLET PO SCH ×3 (06:38→21:55)
[2019-11-19] MEDS: TOLNAFTATE 1% CREAM 15 GM TUBE TP SCH ×2 (10:14→21:55)
[2019-11-19] MEDS: BUDESONIDE/FORMETEROL FUMARATE 80/4.5 mcg INHALER IH SCH ×2 (10:14→21:55)
[2019-11-19] MEDS: FLUOCINONIDE 0.05% CREAM (15 GM TUBE) TP SCH ×2 (10:14→21:55)
[2019-11-19] MEDS: amLODIPine BESYLATE 5 MG TABLET (FP) PO SCH (10:15)
[2019-11-19] MEDS: FOLIC ACID 1 MG TABLET (FP) PO SCH (10:15)
[2019-11-19] MEDS: AMMONIUM LACTATE 12% LOTION 225 GM BOTTLE TP PRN (10:15)
[2019-11-19] MEDS: PRENATAL VITAMINS W/ FOLIC ACID TABLET (FP) PO SCH (10:15)
[2019-11-19] MEDS: LIDOCAINE 5% TOPICAL PATCH TP SCH (10:15)
[2019-11-19] MEDS: PANTOPRAZOLE 40 MG TABLET PO SCH (10:15)
[2019-11-19] MEDS: ASPIRIN 81 MG CHEWABLE TABLETS PO SCH (10:15)
[2019-11-19] MEDS ORDERED: PT OWN MED DRAWER 7, Y5N ONE ×2 (10:17→21:58)
[2019-11-19] MEDS: METOPROLOL TARTRATE 25 MG TABLET (FP) PO SCH ×2 (10:17→21:56)
[2019-11-19] MEDS: LIDOCAINE PATCH REMOVAL MC SCH (21:55)
[2019-11-19] MEDS: THIAMINE HCL 100 MG TABLET (FP) PO SCH (21:55)
[2019-11-19] MEDS: traZODone HCL 50 MG TABLET (FP) PO SCH (21:55)
[2019-11-19] MEDS: MICONAZOLE NITRATE 2% VAGINAL CREAM 45 GM TUBE VG SCH (21:56)
[2019-11-20] MEDS: METHOCARBAMOL 500 MG TABLET PO SCH ×3 (06:52→21:14)
[2019-11-20] MEDS: LIDOCAINE 5% TOPICAL PATCH TP SCH (09:59)
[2019-11-20] MEDS: FLUOCINONIDE 0.05% CREAM (15 GM TUBE) TP SCH ×2 (09:59→21:13)
[2019-11-20] MEDS: amLODIPine BESYLATE 5 MG TABLET (FP) PO SCH (10:00)
[2019-11-20] MEDS: METOPROLOL TARTRATE 25 MG TABLET (FP) PO SCH ×2 (10:00→21:13)
[2019-11-20] MEDS: FOLIC ACID 1 MG TABLET (FP) PO SCH (10:00)
[2019-11-20] MEDS: PANTOPRAZOLE 40 MG TABLET PO SCH (10:00)
[2019-11-20] MEDS: ASPIRIN 81 MG CHEWABLE TABLETS PO SCH (10:00)
[2019-11-20] MEDS: PRENATAL VITAMINS W/ FOLIC ACID TABLET (FP) PO SCH (10:00)
[2019-11-20] MEDS: TOLNAFTATE 1% CREAM 15 GM TUBE TP SCH ×2 (10:01→21:15)
[2019-11-20] MEDS: BUDESONIDE/FORMETEROL FUMARATE 80/4.5 mcg INHALER IH SCH ×2 (10:01→21:15)
[2019-11-20] MEDS: IBUPROFEN 600 MG TABLET (FP) PO PRN (10:02)
[2019-11-20] MEDS ORDERED: PT OWN MED DRAWER 7, Y5N ONE (20:19)
[2019-11-20] MEDS: THIAMINE HCL 100 MG TABLET (FP) PO SCH (21:13)
[2019-11-20] MEDS: traZODone HCL 50 MG TABLET (FP) PO SCH (21:13)
[2019-11-20] MEDS: MICONAZOLE NITRATE 2% VAGINAL CREAM 45 GM TUBE VG SCH (21:14)
[2019-11-20] MEDS: LIDOCAINE PATCH REMOVAL MC SCH (21:14)
[2019-11-21] MEDS: METHOCARBAMOL 500 MG TABLET PO SCH ×3 (06:32→21:45)
[2019-11-21] MEDS: FOLIC ACID 1 MG TABLET (FP) PO SCH (10:07)
[2019-11-21] MEDS: PRENATAL VITAMINS W/ FOLIC ACID TABLET (FP) PO SCH (10:07)
[2019-11-21] MEDS: amLODIPine BESYLATE 5 MG TABLET (FP) PO SCH (10:07)
[2019-11-21] MEDS: PANTOPRAZOLE 40 MG TABLET PO SCH (10:07)
[2019-11-21] MEDS: LIDOCAINE 5% TOPICAL PATCH TP SCH (10:08)
[2019-11-21] MEDS: FLUOCINONIDE 0.05% CREAM (15 GM TUBE) TP SCH ×2 (10:09→21:46)
[2019-11-21] MEDS: METOPROLOL TARTRATE 25 MG TABLET (FP) PO SCH ×2 (10:09→21:44)
[2019-11-21] MEDS: BUDESONIDE/FORMETEROL FUMARATE 80/4.5 mcg INHALER IH SCH ×2 (10:09→21:45)
[2019-11-21] MEDS: TOLNAFTATE 1% CREAM 15 GM TUBE TP SCH ×2 (10:10→21:45)
[2019-11-21] MEDS: ASPIRIN 81 MG CHEWABLE TABLETS PO SCH (11:02)
[2019-11-21] MEDS: THIAMINE HCL 100 MG TABLET (FP) PO SCH (21:44)
[2019-11-21] MEDS: traZODone HCL 50 MG TABLET (FP) PO SCH (21:44)
[2019-11-21] MEDS ORDERED: PT OWN MED DRAWER 7, Y5N ONE (21:44)
[2019-11-21] MEDS: MICONAZOLE NITRATE 2% VAGINAL CREAM 45 GM TUBE VG SCH (21:46)
[2019-11-21] MEDS: LIDOCAINE PATCH REMOVAL MC SCH (21:46)
[2019-11-22] MEDS: METHOCARBAMOL 500 MG TABLET PO SCH (07:02)
[2019-11-22] MEDS: ASPIRIN 81 MG CHEWABLE TABLETS PO SCH (10:05)
[2019-11-22] MEDS: PRENATAL VITAMINS W/ FOLIC ACID TABLET (FP) PO SCH (10:05)
[2019-11-22] MEDS: amLODIPine BESYLATE 5 MG TABLET (FP) PO SCH (10:05)
[2019-11-22] MEDS: METOPROLOL TARTRATE 25 MG TABLET (FP) PO SCH ×2 (10:05→21:33)
[2019-11-22] MEDS: BUDESONIDE/FORMETEROL FUMARATE 80/4.5 mcg INHALER IH SCH ×2 (10:05→21:37)
[2019-11-22] MEDS: PANTOPRAZOLE 40 MG TABLET PO SCH (10:05)
[2019-11-22] MEDS: FOLIC ACID 1 MG TABLET (FP) PO SCH (10:05)
[2019-11-22] MEDS: IBUPROFEN 600 MG TABLET (FP) PO PRN ×2 (10:06→21:34)
[2019-11-22] MEDS: TOLNAFTATE 1% CREAM 15 GM TUBE TP SCH ×2 (10:06→21:37)
[2019-11-22] MEDS: LIDOCAINE 5% TOPICAL PATCH TP SCH (10:06)
[2019-11-22] MEDS: FLUOCINONIDE 0.05% CREAM (15 GM TUBE) TP SCH ×2 (10:06→21:37)
[2019-11-22] MEDS ORDERED: ALBUTEROL SO4 2.5/IPRATROPIUM 0.5 INH SOL 3 ML VIAL.NEB. NEB PRN (15:25)
[2019-11-22] MEDS: THIAMINE HCL 100 MG TABLET (FP) PO SCH (21:32)
[2019-11-22] MEDS: traZODone HCL 50 MG TABLET (FP) PO SCH (21:34)
[2019-11-22] MEDS ORDERED: PT OWN MED DRAWER 7, Y5N ONE (21:36)
[2019-11-22] MEDS: LIDOCAINE PATCH REMOVAL MC SCH (21:37)
[2019-11-22] MEDS: MICONAZOLE NITRATE 2% VAGINAL CREAM 45 GM TUBE VG SCH (21:37)
[2019-11-22] MEDS: METHOCARBAMOL 500 MG TABLET PO PRN (21:37)
[2019-11-23] MEDS: LIDOCAINE 5% TOPICAL PATCH TP SCH (09:57)
[2019-11-23] MEDS: AMMONIUM LACTATE 12% LOTION 225 GM BOTTLE TP PRN (09:58)
[2019-11-23] MEDS: METOPROLOL TARTRATE 25 MG TABLET (FP) PO SCH ×2 (09:58→21:44)
[2019-11-23] MEDS: ASPIRIN 81 MG CHEWABLE TABLETS PO SCH (09:59)
[2019-11-23] MEDS: FOLIC ACID 1 MG TABLET (FP) PO SCH (09:59)
[2019-11-23] MEDS: amLODIPine BESYLATE 5 MG TABLET (FP) PO SCH (09:59)
[2019-11-23] MEDS: PANTOPRAZOLE 40 MG TABLET PO SCH (09:59)
[2019-11-23] MEDS: PRENATAL VITAMINS W/ FOLIC ACID TABLET (FP) PO SCH (09:59)
[2019-11-23] MEDS: BUDESONIDE/FORMETEROL FUMARATE 80/4.5 mcg INHALER IH SCH ×2 (10:00→21:44)
[2019-11-23] MEDS: FLUOCINONIDE 0.05% CREAM (15 GM TUBE) TP SCH ×2 (10:00→21:43)
[2019-11-23] MEDS: TOLNAFTATE 1% CREAM 15 GM TUBE TP SCH ×2 (10:00→21:44)
[2019-11-23] MEDS ORDERED: COLLOIDAL OATMEAL 1 BAR EACH TP PRN (12:15)
[2019-11-23] MEDS: traZODone HCL 50 MG TABLET (FP) PO SCH (21:43)
[2019-11-23] MEDS: THIAMINE HCL 100 MG TABLET (FP) PO SCH (21:44)
[2019-11-23] MEDS: LIDOCAINE PATCH REMOVAL MC SCH (21:44)
[2019-11-23] MEDS: MICONAZOLE NITRATE 2% VAGINAL CREAM 45 GM TUBE VG SCH (21:44)
[2019-11-24] MEDS: LIDOCAINE 5% TOPICAL PATCH TP SCH (10:13)
[2019-11-24] MEDS: ASPIRIN 81 MG CHEWABLE TABLETS PO SCH (10:14)
[2019-11-24] MEDS: METOPROLOL TARTRATE 25 MG TABLET (FP) PO SCH ×2 (10:14→21:07)
[2019-11-24] MEDS: FOLIC ACID 1 MG TABLET (FP) PO SCH (10:14)
[2019-11-24] MEDS: FLUOCINONIDE 0.05% CREAM (15 GM TUBE) TP SCH ×2 (10:14→21:08)
[2019-11-24] MEDS: BUDESONIDE/FORMETEROL FUMARATE 80/4.5 mcg INHALER IH SCH ×2 (10:15→21:09)
[2019-11-24] MEDS: amLODIPine BESYLATE 5 MG TABLET (FP) PO SCH (10:15)
[2019-11-24] MEDS: PANTOPRAZOLE 40 MG TABLET PO SCH (10:15)
[2019-11-24] MEDS: PRENATAL VITAMINS W/ FOLIC ACID TABLET (FP) PO SCH (10:15)
[2019-11-24] MEDS: TOLNAFTATE 1% CREAM 15 GM TUBE TP SCH ×2 (10:15→21:09)
[2019-11-24] MEDS: METHOCARBAMOL 500 MG TABLET PO PRN (10:16)
--- NOTE | 2019-11-24 10:23 | DS ---
[facility] Re[facility] Discharge Summary - [facility] Discharge Summary Admission Date: 11/12/19 Discharge Date: 11/24/19 - History Present History: Alcohol dependence, Cocaine dependence Pertinent Past History: REPORTS DAILY ALCOHOL ABUSE. LAST DETOX WAS AT [facility] IN Aug. SHE REPORTS RELAPSING 1 MONTH AFTER DC. + EYE SIGN LETTERER 2/2 WITHDRAWAL SX'S. DENIES SZ , BLACKOUTS, AVH, DRUG OVERDOSE. UTOX + ARMANDO. DENIES IVDU. DENIES ANY SIGNIFICANT PERIOD OF CLEAN TIME EXCEPT RECENT 1 MONTH IN AUG. HOMLESS, UNEMPLOYED, DENIES LEGALS - Discharge Physical Exam Vital Signs: Vital Signs Temperature 97.6 F 11/24/19 06:57 Pulse Rate 87 11/24/19 09:09 Respiratory Rate 18 11/24/19 06:57 Blood Pressure 117/73 11/24/19 09:09 O2 Sat by Pulse Oximetry (%) 100 11/13/19 16:38 Pertinent Admission Physical Exam Findings: Physical General Appearance: No apparent distress HEENTM: Normocephalic Respiratory:No Respiratory Distress Neck: Supple, Cardiology: S1, S2 Abdominal+Bowel Sounds, Musculoskeletal: full range of Motion, Gait Steady Neurological: CN 2-12 intact - Treatment Discharge Condition: Outpatient referral accepted (medically stable for discharge. Patient will go to [facility]) Hospital Course: Patient attended groups, had 1;1 meetings with her provider. She was seen by the psychiatric service. During her stay she was treated effectively for bilateral knee pain. - Medication Discharge Medications: Ambulatory Orders Pantoprazole Sodium [Protonix -] 40 mg PO DAILY #30 tablet.ec 12/11/14 Azithromycin [Zithromax -] 250 mg PO DAILY 11/12/19 Miconazole Nitrate [Monistat 7] 45 gm VG HS 11/12/19 Neomycin/Polymyx/Hc Ophth Susp [Cortisporin Ophthalmic Suspension -] 1 drop OD Q4H 11/12/19 Tolnaftate 1% Cream [Tinactin 1% Cream -] 1 applic TP BID 11/12/19 Albuterol Sulfate Inhaler - [Ventolin HFA Inhaler -] 1 - 2 inh PO Q4H PRN #1 inh 11/24/19 Amlodipine Besylate [Norvasc -] 5 mg PO DAILY #14 tablet 11/24/19 Aspirin [ASA -] 81 mg PO DAILY #14 tab.chew 11/24/19 Budesonide/Formeterol Fumarate [SYMBICORT 80/4.5mcg -] 2 inh PO BID #1 inhaler 11/24/19 Folic Acid - 1 mg PO DAILY #14 tablet 11/24/19 Metoprolol Tartrate [Lopressor -] 25 mg PO BID #30 tablet 11/24/19 Pantoprazole Sodium [Protonix] 40 mg PO DAILY #14 tablet. 11/24/19 - Medication-Assisted Treatment (MAT) Medication-Assisted Treatment (MAT): No - Discharge Instructions Diet, activity, other medical instructions: Diet: as tolerated Activity: as tolerated Other medical instructions: Please follow up with aftercare referral. Please make an appointment with your PCP for healthcare. - Diagnosis (1) Alcohol dependence Current Visit: No Status: Chronic (2) Cocaine dependence Current Visit: No Status: Acute (3) Opioid abuse, episodic Current Visit: No Status: Acute - Follow-up Referral Minutes to complete discharge: 17 - AMA Did Patient Leave Against Medical Advice: No
--- NOTE | 2019-11-24 12:38 | PN ---
[facility] Progress Note Note: Patient is scheduled for discharge tomorrow. Script for 30 days supply of Trazadone 50 mg/hs will be electronically transmitted to [facility] at [facility] [place] [address]
[2019-11-24] MEDS: THIAMINE HCL 100 MG TABLET (FP) PO SCH (21:07)
[2019-11-24] MEDS: LIDOCAINE PATCH REMOVAL MC SCH (21:08)
[2019-11-24] MEDS: traZODone HCL 50 MG TABLET (FP) PO SCH (21:08)
[2019-11-24] MEDS: MICONAZOLE NITRATE 2% VAGINAL CREAM 45 GM TUBE VG SCH (21:09)
[2019-11-24] MEDS ORDERED: PT OWN MED DRAWER 7, Y5N ONE (21:12)
[2019-11-25 07:17] VITALS: BP 116/73; PULSE 78; TEMP 97.7
[2019-11-25] MEDS ORDERED: PT OWN MED DRAWER 7, Y5N ONE ×2 (08:39→08:47)
== END 2019-11-25 08:50 | disposition home or self-care (01) | DRG 772 ==
LOC: YASAS 12:32 → Y3E 12:33
PROVIDERS: ADMIT Allergy & Immunology; ATTEND Allergy & Immunology
PROC: HZ42ZZZ Group Counseling for Substance Abuse Treatment, Cognitive-Behavioral (ICD-10-PCS; principal; 2019-11-12)
DX: F10.20 Alcohol dependence, uncomplicated (principal); F13.20 Sedative, hypnotic or anxiolytic dependence, uncomplicated; F14.20 Cocaine dependence, uncomplicated; F11.10 Opioid abuse, uncomplicated; F17.210 Nicotine dependence, cigarettes, uncomplicated; F31.81 Bipolar II disorder; F43.10 Post-traumatic stress disorder, unspecified; J45.20 Mild intermittent asthma, uncomplicated; E03.9 Hypothyroidism, unspecified; M17.0 Bilateral primary osteoarthritis of knee; K21.9 Gastro-esophageal reflux disease without esophagitis; E66.9 Obesity, unspecified; Z68.33 Body mass index [BMI] 33.0-33.9, adult; Z86.69 Personal history of other diseases of the nervous system and sense organs; R76.11 Nonspecific reaction to tuberculin skin test without active tuberculosis; Z88.2 Allergy status to sulfonamides
CPT/HCPCS: 36415; 87389; 94640